=== PATIENT | male | born 1950 | race Caucasian/White ===

== ENCOUNTER 2022-07-01 14:54 | Observation (INO) ==
[2022-07-01 15:22] LABS: ABS Eosinophils 0.2 10^3/ul (0-0.6); ABS Lymphocytes 1.1 10^3/ul (1.0-4.8); ABS Monocytes 0.8 10^3/ul (0-0.8); ABS Neutrophils 6.2 10^3/ul (1.5-7.7); Eosinophil % 1.9 %; Hematocrit 54 % (42-52); Hemoglobin 17.4 g/dL (14.0-18.0); Lymphocyte % 13.5 %; Mean Corpuscular HGB Conc 32 g/dL (31-36); Mean Corpuscular Hemoglobin 30 pg (27-31); Mean Corpuscular Volume 92 fL (80-94); Mean Platelet Volume 7.1 fL (7.4-10.4); Platelet Count 242 10^3/uL (150-450); Red Blood Count 5.83 10^6 /uL (4.18-5.48); Red Cell Distribution Width 16 % (10-15); White Blood Count 8.4 10^3/uL (3.5-10.8)
[2022-07-01 15:24] LABS: INR 1.42 (0.88-1.18)
[2022-07-01 15:59] LABS: Albumin 3.9 g/dL (3.2-5.2); Albumin/Globulin Ratio 1.3 (1-3); Calcium 9.5 mg/dL (8.6-10.3); Creatinine, Serum 1.3 mg/dL (0.67-1.17); Globulin 2.9 g/dL (2-4); Total Bilirubin 0.7 mg/dL (0.2-1.0); Total Protein 6.8 g/dL (6.4-8.9); eGFR CKD-EPI 59.5 (>60)
[2022-07-01 16:04] LABS: Potassium 5.3 mmol/L (3.5-5.0)
[2022-07-01 16:39] LABS: High Sensitivity Troponin 1 Hr 11 pg/mL (<20)
[2022-07-01 16:41] LABS: Urine Appearance Turbid; Urine Bilirubin Negative (Negative); Urine Blood Negative (Negative); Urine Color Yellow; Urine Glucose Negative (Negative); Urine Ketones Negative (Negative); Urine Nitrite Negative (Negative); Urine Protein 1+(30 mg/dL) (Negative); Urine Specific Gravity 1.015 (1.002-1.030); Urine Urobilinogen Negative (Negative)
[2022-07-01 16:44] LABS: Urine Bacteria 1+ (Absent); Urine Red Blood Cell Trace(0-2/hpf) (Absent); Urine Squamous Epithelial Cell Present (Absent); Urine White Blood Cell 2+(11-20/hpf) (Absent)
[2022-07-01] MEDS ORDERED: Sodium Polystyrene ORAL.SUSP 15 GM/60 ML BTL PO ONE (17:11)
[2022-07-01] MEDS ORDERED: Furosemide 40 mg/4 ml IV VIAL IV ONE (17:14)
[2022-07-01] MEDS ORDERED: Dextrose 50% Syringe 50 ml 25 GM/50 ML SYRINGE IV PUSH PRN (17:25)
[2022-07-01] MEDS ORDERED: OXYCODONE ACETAMINOPHEN PO PRN (17:36)
[2022-07-01] MEDS: CMCS: Meloxicam 7.5 mg TAB (NF) PO SCH (22:38)
[2022-07-01] MEDS: Brinzolamid/Brimonidin OPH(NF) 1 DROP BTL BOTH EYES SCH (22:41)
[2022-07-01] MEDS: CMCS: Cyclosporine 0.05% OPHTH (NF) 0.4 ML VIAL BOTH EYES SCH (22:41)
[2022-07-02 06:13] LABS: ABS Eosinophils 0.1 10^3/ul (0-0.6); ABS Monocytes 0.8 10^3/ul (0-0.8); ABS Neutrophils 5.8 10^3/ul (1.5-7.7); Eosinophil % 1.3 %; Hematocrit 50 % (42-52); Hemoglobin 16.2 g/dL (14.0-18.0); Lymphocyte % 13.1 %; Mean Corpuscular HGB Conc 33 g/dL (31-36); Mean Corpuscular Hemoglobin 30 pg (27-31); Mean Corpuscular Volume 91 fL (80-94); Mean Platelet Volume 6.9 fL (7.4-10.4); Platelet Count 237 10^3/uL (150-450); Red Blood Count 5.43 10^6 /uL (4.18-5.48); Red Cell Distribution Width 16 % (10-15); White Blood Count 7.7 10^3/uL (3.5-10.8)
[2022-07-02 06:28] LABS: Calcium 8.7 mg/dL (8.6-10.3); Creatinine, Serum 1.12 mg/dL (0.67-1.17); Potassium 3.9 mmol/L (3.5-5.0); eGFR CKD-EPI 71.1 (>60)
[2022-07-02 09:36] LABS: Magnesium 1.7 mg/dL (1.9-2.7)
[2022-07-02] MEDS: Insulin GLARGINE 100 un/ml 10 ml VIAL SUBCUT SCH (10:25)
[2022-07-02] MEDS: DULoxetine DR 60 mg CAP PO SCH (10:27)
[2022-07-02] MEDS: DULoxetine DR 30 mg CAP PO SCH (10:27)
[2022-07-02] MEDS: Brinzolamid/Brimonidin OPH(NF) 1 DROP BTL BOTH EYES SCH ×3 (10:37→21:57)
[2022-07-02] MEDS ORDERED: Magnesium Sulf 4 GM/100 ML IV 4,000 MG/100 ML BAG IVPB ONE (12:15)
[2022-07-02] MEDS: CMCS: Cyclosporine 0.05% OPHTH (NF) 0.4 ML VIAL BOTH EYES SCH ×2 (12:16→21:57)
[2022-07-02] MEDS: CMCS: Meloxicam 7.5 mg TAB (NF) PO SCH (12:17)
[2022-07-02] MEDS ORDERED: fentaNYL 100 mcg/2 ml 50 MCG/ML VIAL ONE (15:53)
[2022-07-02] MEDS ORDERED: Naloxone 0.4 mg VIAL 0.4 mg/ml 1 ml VIAL ONE (15:53)
[2022-07-02] MEDS ORDERED: Midazolam 5 mg/5 ml VIAL 1 mg/ml 5 ml VIAL (5 mg) ONE (15:53)
[2022-07-02] MEDS ORDERED: Flumazenil 0.5 mg/5 ml 0.1 MG/ML 5 ml VIAL ONE (15:54)
[2022-07-02] MEDS ORDERED: CMC:Meloxicam 7.5 mg TAB (NF) PO PRN (16:31)
[2022-07-02] MEDS ORDERED: Midazolam 10 mg/10 ml VIAL 1 mg/ml 10 ml VIAL (10 mg) IV SLOW PU ONE (16:33)
[2022-07-02] MEDS ORDERED: fentaNYL 100 mcg/2 ml 50 MCG/ML VIAL IV SLOW PU ONE (16:33)
[2022-07-02] MEDS ORDERED: Naloxone 0.4 mg VIAL 0.4 mg/ml 1 ml VIAL IV PUSH PRN (16:33)
[2022-07-02] MEDS ORDERED: Flumazenil 0.5 mg/5 ml 0.1 MG/ML 5 ml VIAL IV PRN (16:33)
[2022-07-03 09:22] LABS: INR 1.38 (0.88-1.18)
[2022-07-03] MEDS: DULoxetine DR 60 mg CAP PO SCH (09:48)
[2022-07-03] MEDS: DULoxetine DR 30 mg CAP PO SCH (09:48)
[2022-07-03] MEDS: CMCS: Cyclosporine 0.05% OPHTH (NF) 0.4 ML VIAL BOTH EYES SCH (09:51)
[2022-07-03] MEDS: Insulin GLARGINE 100 un/ml 10 ml VIAL SUBCUT SCH (09:51)
[2022-07-03] MEDS: Brinzolamid/Brimonidin OPH(NF) 1 DROP BTL BOTH EYES SCH ×2 (09:52→13:53)
[2022-07-03 16:20] VITALS: BP 163/90
== END 2022-07-03 15:45 | disposition home or self-care (01) ==
LOC: ED 14:54 → EDHOLD 14:54 → SUATTDRO 16:03 → MEDTELE 20:27
PROVIDERS: ADMIT Internal Medicine; ATTEND Internal Medicine
PROC: CARDVER (ICD-10-PCS; 2022-07-02 13:50)

== ENCOUNTER 2024-04-02 05:45 | Observation (INO) ==
[~2024-04-02 05:45] MED LIST: Acetaminophen IV 1 GM/100ML 1,000 MG/100 ML BAG IV ONE; Lactated Ringers 1000 ml BAG 1,000 ML IV SCH; Lidocaine 1% w EPI 1:100,000 MDV 20 ML VIAL ONE; Metoclopramide 5 MG/ML VIAL (10 mg) IV PRN; NS 0.45% 1000 ml BAG 1,000 ML IV SCH; Naloxone 0.4 mg VIAL 0.4 mg/ml 1 ml VIAL IV PRN; Ondansetron 4 mg VIAL 2 MG/ML 2 ml VIAL IV PRN; Thrombin 5,000 UNITS(BOVINE) for Ultrasound Guided Pseudoaneursym ONE; ceFAZolin VIAL VIAL ONE; fentaNYL 100 mcg/2 ml 50 MCG/ML VIAL IV PRN
[2024-04-02] MEDS: Scopolamine 1 mg/72hr PATCH TRANSDERM ONE (06:13)
[2024-04-02] MEDS: Buffered Lidocaine 1% SYRIN 1 ml INTRADERM ONE (06:13)
[2024-04-02] MEDS ORDERED: ceFAZolin 2 GM PREMIX 2 GM/50 ML BAG ONE (06:14)
[2024-04-02] MEDS ORDERED: Chlorhexidine MOUTHWASH 0.12% 15 ML UDC ONE (06:14)
[2024-04-02] MEDS ORDERED: Rocuronium 50 mg VIAL 10 mg/ml 5 ml VIAL (50 mg) ONE ×2 (06:40→09:21)
[2024-04-02] MEDS ORDERED: Dexamethasone IV 4 MG/ML VIAL 1 ml VIAL ONE (06:40)
[2024-04-02] MEDS ORDERED: Ondansetron 4 mg VIAL 2 MG/ML 2 ml VIAL ONE (06:40)
[2024-04-02] MEDS ORDERED: Lidocaine 2% PF 5 ML VIAL ONE (06:40)
[2024-04-02] MEDS ORDERED: Propofol 0 MG/0 ML BTL ONE (06:40)
[2024-04-02] MEDS ORDERED: Propofol 10 MG/ML 20 ML BTL ONE (06:40)
[2024-04-02] MEDS ORDERED: fentaNYL 250 mcg/5 ml 50 MCG/ML 5 ml VIAL (250 MCG) ONE (06:41)
[2024-04-02] MEDS ORDERED: Midazolam 2 mg/2 ml VIAL 1 mg/ml 2 ml VIAL (2 mg) ONE (06:41)
[2024-04-02 06:58] LABS: Rapid COVID-19 Molecular Undetected (Undetected)
[2024-04-02] MEDS ORDERED: Propofol 10 mg/ml 100 ML BTL 1,000 MG/100 ML BTL ONE (06:59)
[2024-04-02] MEDS ORDERED: Phenylephrine IV 10 MG/ML 1 ml VIAL ONE (07:58)
[2024-04-02] MEDS ORDERED: Benzocaine/Menthol LOZ MT PRN (10:10)
[2024-04-02] MEDS ORDERED: Phenol 1.4% Throat Spray BTL MT PRN (10:10)
[2024-04-02] MEDS ORDERED: Dextran 70/Hypromellose Tears Eye Drops 15 ml BTL (for Artificials Tears) BOTH EYES PRN (10:10)
[2024-04-02] MEDS ORDERED: Senna TAB 8.6 mg TAB PO PRN (10:10)
[2024-04-02] MEDS ORDERED: Calcium Carb (TUMS) 500 mg CHEW TAB PO PRN (10:10)
[2024-04-02] MEDS ORDERED: Ondansetron 4 mg VIAL 2 MG/ML 2 ml VIAL IV PRN (10:10)
[2024-04-02] MEDS: Lactated Ringers 1000 ml BAG 1,000 ML IV SCH (14:32)
[2024-04-02] MEDS: Cyclosporine 0.05% OPHTH (NF) 0.4 ML VIAL BOTH EYES SCH (14:59)
[2024-04-02] MEDS: BRIMONIDIN OPH RIGHT EYE SCH (20:01)
[2024-04-02] MEDS: BRINZOLAMID RIGHT EYE SCH (20:01)
[2024-04-02] MEDS: TIMOLOL MALEATE 0.5% RIGHT EYE SCH (20:02)
[2024-04-02] MEDS: LEVOCARNITINE TARTRATE 250 MG PO SCH (20:02)
[2024-04-03] MEDS: Morphine 2 MG/ML SYRINGE IV PRN (00:49)
[2024-04-03] MEDS: Calcium (OSCAL) 500 mg TAB PO SCH (09:08)
[2024-04-03] MEDS: Insulin GLARGINE 100 un/ml 10 ml VIAL SUBCUT SCH (09:10)
[2024-04-04 15:13] VITALS: BP 124/66
== END 2024-04-04 16:10 | disposition home or self-care (01) ==
LOC: OR 05:45 → SSU 05:45
PROVIDERS: ADMIT Neurological Surgery; ATTEND Neurological Surgery

== ENCOUNTER 2024-05-28 16:17 | Inpatient (IN) ==
[2024-05-28] MEDS: Lactated Ringers 1000 ml BAG 1,000 ML IV ONE ×2 (16:54→20:53)
[2024-05-28 17:03] LABS: ABS Eosinophils 0.2 10^3/uL (0.0-0.5); ABS Lymphocytes 1.6 10^3/uL (1.0-4.8); ABS Monocytes 1.3 10^3/uL (0.0-1.1); ABS Neutrophils 14.3 10^3/uL (1.5-7.6); ABS Nucleated RBC 0.01 10^3/ul; Eosinophil % 1.1 %; Hematocrit 46.4 % (38-53); Hemoglobin 15.7 g/dL (13.2-16.3); Mean Corpuscular Hemoglobin 31.1 pg (27-33); Mean Corpuscular Hgb Conc 33.8 g/dL (31-36); Mean Platelet Volume 7.1 fL (7.5-11.2); Platelet Count 274 10^3/uL (150-450); Red Blood Count 5.05 10^6/uL (4.06-5.63); Red Cell Distribution Width 15.1 % (12-17); White Blood Count 17.5 10^3/uL (3.6-10.2)
[2024-05-28 17:11] LABS: Activated Partial Thrombo Time 32.2 seconds (26.0-38.0); INR 1.29 (0.85-1.14)
[2024-05-28 17:29] LABS: Albumin 4.6 g/dL (3.5-5.7); Albumin/Globulin Ratio 1.7 (1-3); C Reactive Protein 6.25 mg/L (<8.01); Calcium 9.9 mg/dL (8.6-10.3); Creatinine, Serum 1.27 mg/dL (0.67-1.17); Globulin 2.7 g/dL (2-4); Total Bilirubin 0.6 mg/dL (0.2-1.0); Total Protein 7.3 g/dL (6.4-8.9); eGFR CKD-EPI 60.4 (>60)
[2024-05-28 18:22] LABS: Budding Yeast Present /HPF (Absent); Urine Appearance Clear; Urine Bacteria Absent /HPF (Absent); Urine Bilirubin Negative (Negative); Urine Blood Negative (Negative); Urine Color Light-Yellow; Urine Glucose 4+ (>=1000 mg/dL) (Negative); Urine Ketones Negative (Negative); Urine Nitrite Negative (Negative); Urine Protein Negative (Negative); Urine Red Blood Cell 1+(3-5/hpf) /HPF (0-Trace); Urine Squamous Epithelial Cell Present /HPF (Absent); Urine Urobilinogen Negative (Negative); Urine White Blood Cell 3+(>20/hpf) /HPF (0-Trace)
[2024-05-28 18:26] LABS: High Sensitivity Troponin 1 Hr 8 pg/mL (<20)
[2024-05-28] MEDS: cefTRIAXone 1 gm/50 mL D5W 1 GM/50 ML BAG IV ONE (20:16)
[2024-05-28] MEDS: PTO: Brinzolamid/Brimonidin OPH(NF) 1 DROP BTL RIGHT EYE SCH (22:38)
[2024-05-29 05:39] LABS: ABS Basophils 0.1 10^3/uL (0.0-0.1); ABS Lymphocytes 1.1 10^3/uL (1.0-4.8); ABS Neutrophils 13.4 10^3/uL (1.5-7.6); Eosinophil % 0.1 %; Hematocrit 43.9 % (38-53); Lymphocyte % 6.7 %; Mean Corpuscular Hgb Conc 34.1 g/dL (31-36); Mean Corpuscular Volume 93.7 fL (80-97); Platelet Count 214 10^3/uL (150-450); Red Blood Count 4.69 10^6/uL (4.06-5.63); Red Cell Distribution Width 15.6 % (12-17); White Blood Count 15.6 10^3/uL (3.6-10.2)
[2024-05-29 06:33] LABS: Creatinine, Serum 1.51 mg/dL (0.67-1.17); Potassium 4.3 mmol/L (3.5-5.0); eGFR CKD-EPI 49.1 (>60)
[2024-05-29] MEDS: Cholecalciferol (VIT D3) 1,000 unit TAB PO SCH (09:10)
[2024-05-29] MEDS: Insulin GLARGINE 100 un/ml 10 ml VIAL SUBCUT SCH (09:11)
[2024-05-29] MEDS: Empagliflozin 25 MG TAB PO SCH (09:11)
[2024-05-29] MEDS: Cefepime 2 GM in Dextrose 2 GM/50 ML BAG IV SCH (12:48)
[2024-05-29] MEDS ORDERED: cefTRIAXone 1 gm/50 mL D5W 1 GM/50 ML BAG IV SCH (20:00)
[2024-05-29] MEDS: PTO: Timolol 0.5% OPTH.SOL BTL RIGHT EYE SCH (23:35)
[2024-05-29] MEDS: CMC:Cyclosporine 0.05% OPHTH (NF) 0.4 ML VIAL BOTH EYES SCH (23:36)
[2024-05-30] MEDS: Cefepime 2 GM in Dextrose 2 GM/50 ML BAG IV SCH (01:29)
[2024-05-30 07:12] LABS: Calcium 8.4 mg/dL (8.6-10.3); Creatinine, Serum 1.27 mg/dL (0.67-1.17); Potassium 4.1 mmol/L (3.5-5.0); eGFR CKD-EPI 60.4 (>60)
[2024-05-30] MEDS ORDERED: Dextrose 50% Syringe 50 ml 25 GM/50 ML SYRINGE IV PUSH PRN (07:39)
[2024-05-30 08:17] LABS: ABS Basophils 0.1 10^3/uL (0.0-0.1); ABS Eosinophils 0.3 10^3/uL (0.0-0.5); ABS Lymphocytes 1.3 10^3/uL (1.0-4.8); ABS Monocytes 1.1 10^3/uL (0.0-1.1); Eosinophil % 3.2 %; Hematocrit 38.9 % (38-53); Hemoglobin 13.3 g/dL (13.2-16.3); Mean Corpuscular Hemoglobin 31.8 pg (27-33); Mean Corpuscular Hgb Conc 34.1 g/dL (31-36); Mean Corpuscular Volume 93.3 fL (80-97); Mean Platelet Volume 7.5 fL (7.5-11.2); Platelet Count 180 10^3/uL (150-450); Red Blood Count 4.17 10^6/uL (4.06-5.63); Red Cell Distribution Width 15.7 % (12-17); White Blood Count 9.7 10^3/uL (3.6-10.2)
[2024-05-30] MEDS: Insulin GLARGINE 100 un/ml 10 ml VIAL SUBCUT SCH (10:01)
[2024-05-31 06:47] LABS: ABS Basophils 0.1 10^3/uL (0.0-0.1); ABS Eosinophils 0.6 10^3/uL (0.0-0.5); ABS Lymphocytes 1.7 10^3/uL (1.0-4.8); ABS Neutrophils 3.8 10^3/uL (1.5-7.6); ABS Nucleated RBC 0.01 10^3/ul; Eosinophil % 7.9 %; Hematocrit 40.8 % (38-53); Lymphocyte % 23.9 %; Mean Corpuscular Hgb Conc 34.3 g/dL (31-36); Mean Corpuscular Volume 93.3 fL (80-97); Mean Platelet Volume 7.2 fL (7.5-11.2); Nucleated Red Blood Cells % 0.1 %/100WBC (0.0-0.8); Platelet Count 199 10^3/uL (150-450); Red Blood Count 4.38 10^6/uL (4.06-5.63); Red Cell Distribution Width 15.4 % (12-17); White Blood Count 7.1 10^3/uL (3.6-10.2)
[2024-05-31 07:06] LABS: Calcium 8.5 mg/dL (8.6-10.3); Creatinine, Serum 1.18 mg/dL (0.67-1.17); Magnesium 1.9 mg/dL (1.9-2.7); Potassium 3.9 mmol/L (3.5-5.0)
[2024-05-31] MEDS ORDERED: Senna TAB 8.6 mg TAB PO PRN (07:30)
[2024-05-31] MEDS ORDERED: Polyethylene Glycol 3350 17 GM PACKET PO PRN (07:30)
[2024-05-31] MEDS ORDERED: Magnesium Hydroxide LIQ 30 ML UDC PO PRN (07:30)
[2024-05-31 07:50] LABS: Albumin 3.6 g/dL (3.5-5.7); Albumin/Globulin Ratio 1.4 (1-3); Direct Bilirubin 0.1 mg/dL (0.03-0.18); Globulin 2.6 g/dL (2-4); Indirect Bilirubin 0.5 mg/dL (0.3-1.0); Total Bilirubin 0.6 mg/dL (0.2-1.0); Total Protein 6.2 g/dL (6.4-8.9)
[2024-05-31 09:46] LABS: C Reactive Protein 91.11 mg/L (<8.01)
[2024-05-31] MEDS ORDERED: Vancomycin per Pharmacy 1 EA NOTE FOLLOW UP SCH (14:00)
[2024-05-31] MEDS: Iodixanol 320 (CONTRAST) 100 ML SDV IV ONE (14:19)
[2024-05-31] MEDS: Vancomycin 1,000 MG in NS 0.9% 250 ml 250 ML IVPB ONE (14:28)
[2024-05-31] MEDS: Vancomycin 2,000 MG in NS 0.9% 500 ml BAG 500 ML IVPB ONE (14:46)
[2024-06-01] MEDS: Vancomycin 1000 MG in NS 0.9% 250 ML IVPB SCH (05:16)
[2024-06-01 06:49] LABS: ABS Basophils 0.1 10^3/uL (0.0-0.1); ABS Eosinophils 0.5 10^3/uL (0.0-0.5); ABS Lymphocytes 1.3 10^3/uL (1.0-4.8); ABS Monocytes 0.8 10^3/uL (0.0-1.1); ABS Neutrophils 4.1 10^3/uL (1.5-7.6); Eosinophil % 7.3 %; Hematocrit 38.1 % (38-53); Hemoglobin 13.1 g/dL (13.2-16.3); Lymphocyte % 19.4 %; Mean Corpuscular Hemoglobin 32.1 pg (27-33); Mean Corpuscular Hgb Conc 34.5 g/dL (31-36); Mean Platelet Volume 7.1 fL (7.5-11.2); Nucleated Red Blood Cells % 0.1 %/100WBC (0.0-0.8); Platelet Count 200 10^3/uL (150-450); Red Blood Count 4.09 10^6/uL (4.06-5.63); Red Cell Distribution Width 14.8 % (12-17); White Blood Count 6.7 10^3/uL (3.6-10.2)
[2024-06-01 06:56] LABS: Albumin 3.3 g/dL (3.5-5.7); Albumin/Globulin Ratio 1.4 (1-3); Calcium 8.2 mg/dL (8.6-10.3); Creatinine, Serum 1.01 mg/dL (0.67-1.17); Globulin 2.4 g/dL (2-4); Potassium 4.1 mmol/L (3.5-5.0); Total Bilirubin 0.6 mg/dL (0.2-1.0); Total Protein 5.7 g/dL (6.4-8.9); eGFR CKD-EPI 79.5 (>60)
[2024-06-01 07:55] LABS: C Reactive Protein 45.8 mg/L (<8.01)
[2024-06-01 11:02] VITALS: BP 142/77
[2024-06-02] MEDS ORDERED: Vancomycin Trough Check NOTE FOLLOW UP ONE (05:30)
== END 2024-06-01 17:40 | disposition home or self-care (01) | DRG 872 ==
LOC: ED 16:17 → EDHOLD 19:29 → MED 05-29 15:50
PROVIDERS: ADMIT Student in an Organized Health Care Education/Training Program; ATTEND Internal Medicine